=== PATIENT | female | born 1995 | race Caucasian/White ===

== ENCOUNTER 2016-11-06 17:53 | Emergency (ER) | payer BC ==
[2016-11-06 18:02] VITALS: BP 115/69
--- NOTE | 2016-11-06 19:11 | UC ---
Skin Complaint HPI - HPI Summary HPI Summary: Feeling badly, rash that is tender and painful in occipital region of head--- - History of Current Complaint Chief Complaint: UCUpperExtremity Time Seen by Provider: 11/06/16 18:17 Stated Complaint: NECKAND HEAD SWELLING Hx Obtained From: Patient Hx Last Menstrual Period: 10/20/16 ?: No Onset/Duration: Sudden Onset, Lasting Days, Worse Since - today Timing: Constant Onset Severity: Mild Current Severity: Moderate Location: Discrete Character: Redness, Painful Aggravating: Touch Alleviating: Nothing Associated Signs & Symptoms: Positive: Negative - Allergy/Home Medications Allergies/Adverse Reactions: Allergies Allergy/AdvReac Type Severity Reaction Status Date / Time Ketorolac Tromethamine Allergy Mild Hives Verified 04/18/14 15:01 [From Toradol] Review of Systems Constitutional: Chills, Fatigue Skin: Rash Eyes: Negative ENT: Negative Respiratory: Negative Cardiovascular: Negative Gastrointestinal: Negative Genitourinary: Negative Motor: Negative Neurovascular: Negative Musculoskeletal: Negative Neurological: Negative Psychological: Negative All Other Systems Reviewed And Are Negative: Yes PMH/Surg Hx/FS Hx/Imm Hx Previously Healthy: Yes - Surgical History Surgical History: Yes - Family History Known Family History: Positive: None - Social History Occupation: Employed Full-time Alcohol Use: Rare Substance Use Type: None Smoking Status (MU): Never Smoked Tobacco Have You Smoked in the Last Year: No Physical Exam Triage Information Reviewed: Yes Appearance: Well-Nourished, Ill-Appearing - mild, Pain Distress Vital Signs: Initial Vital Signs Temp 99.0 F 11/06/16 17:58 Pulse 83 11/06/16 17:58 Resp 18 11/06/16 17:58 BP 115/69 11/06/16 17:58 Pulse Ox 100 11/06/16 17:58 Vital Signs Reviewed: Yes Eye Exam: Normal Eyes: Positive: Conjunctiva Clear ENT Exam: Normal ENT: Positive: Normal ENT inspection, Hearing grossly normal, Pharynx normal, TMs normal. Negative: Nasal congestion, Nasal drainage, Trismus, Muffled/ hoarse voice Dental Exam: Normal Neck exam: Normal Neck: Positive: Supple, Nontender, No Lymphadenopathy Respiratory Exam: Normal Respiratory: Positive: Chest non-tender, Lungs clear, Normal breath sounds, No respiratory distress, No accessory muscle use Cardiovascular Exam: Normal Cardiovascular: Positive: RRR, No Murmur, Pulses Normal, Brisk Capillary Refill Abdominal Exam: Normal Abdomen Description: Positive: Nontender, No Organomegaly, Soft Bowel Sounds: Positive: Present Musculoskeletal Exam: Normal Musculoskeletal: Positive: Strength Intact, ROM Intact, No Edema Neurological Exam: Normal Neurological: Positive: Alert, Muscle Tone Normal Psychological Exam: Normal Psychological: Positive: Normal Response To Family, Age Appropriate Behavior Skin: Positive: rashes Re-Evaluation - Re-Evaluation First Eval Change: Improved - reviewed case with , plan to submit strep swab. Swab postive for strep Course/Dx - Course Course Of Treatment: Amoxicillin, rest one day off or work, follow with pvp - Differential Diagnoses - Skin Complaint Differential Diagnoses: Cellulitis, Contact Dermatitis, Poison Melina, Urticaria - Diagnoses Provider Diagnoses: Strep syndrome Discharge - Discharge Plan Condition: Stable Disposition: HOME Prescriptions: Amoxicillin PO (*) [Amoxicillin 500 MG CAP*] 500 mg PO Q12H #20 cap Patient Education Materials: Amoxicillin (By mouth) Forms: *Work Release Referrals: [facility] [place] [facility]ERR[facility] [Outside] - If Needed No Primary Care Phys,NOPCP [Primary Care Provider] -
== END 2016-11-06 19:24 | disposition home or self-care (01) ==
LOC: UCEAST 17:53
DX: J02.0 Streptococcal pharyngitis (principal); R53.83 Other fatigue; Z88.5 Allergy status to narcotic agent; R68.83 Chills (without fever); R21 Rash and other nonspecific skin eruption
CPT/HCPCS: 87651; 99212; G0463

== ENCOUNTER 2018-06-14 18:19 | Emergency (ER) | payer BC ==
[2018-06-14 18:37] VITALS: BP 138/92
--- NOTE | 2018-06-14 18:48 | UC ---
Throat Pain/Nasal Yunior HPI - HPI Summary HPI Summary: 22-year-old woman comes in with a chief complaint of runny nose sinus pressure yellow rhinorrhea fever bodyaches and fatigue. Been going on for about 3 days. [id number] medicines to help with symptoms. Patient does not have a sore throat. No chest congestion or shortness of breath. - History of Current Complaint Chief Complaint: UCRespiratory Stated Complaint: SINUS CONGESTION Time Seen by Provider: 06/14/18 18:27 Hx Last Menstrual Period: 05/30/18 Pain Intensity: 7 - Allergies/Home Medications Allergies/Adverse Reactions: Allergies Allergy/AdvReac Type Severity Reaction Status Date / Time bee venom protein (honey bee) Allergy Unknown Verified 06/14/18 18:38 Reaction Details ketorolac [From Toradol] Allergy Hives Verified 06/14/18 18:38 Home Medications: Home Medications RX: Ibuprofen 800 mg PO ONCE PRN 06/14/18 [History Confirmed 06/14/18] PMH/Surg Hx/FS Hx/Imm Hx Previously Healthy: Yes - Surgical History Surgical History: None - Family History Known Family History: Positive: None - Social History Alcohol Use: Rare Substance Use Type: None Smoking Status (MU): Never Smoked Tobacco Have You Smoked in the Last Year: No Review of Systems All Other Systems Reviewed And Are Negative: Yes Constitutional: Positive: Fever, Chills Skin: Positive: Negative Eyes: Positive: Negative ENT: Positive: Nasal Discharge, Sinus Congestion, Sinus Pain/Tenderness Respiratory: Positive: Negative Cardiovascular: Positive: Negative Gastrointestinal: Positive: Negative Motor: Positive: Negative Neurovascular: Positive: Negative Musculoskeletal: Positive: Myalgia Neurological: Positive: Negative Psychological: Positive: Negative Is Patient Immunocompromised?: No Physical Exam Triage Information Reviewed: Yes Appearance: No Pain Distress, Well-Nourished, Ill-Appearing - MILD Vital Signs: Initial Vital Signs Temp 100 F 06/14/18 18:34 Pulse 107 06/14/18 18:34 Resp 18 06/14/18 18:34 BP 138/92 06/14/18 18:34 Pulse Ox 99 06/14/18 18:34 Vital Signs Reviewed: Yes Eye Exam: Normal Eyes: Positive: Conjunctiva Clear ENT: Positive: Pharyngeal erythema, Nasal congestion, Nasal drainage, TMs normal Neck exam: Normal Neck: Positive: Supple Respiratory: Positive: Lungs clear, Normal breath sounds, No respiratory distress Cardiovascular: Positive: Tachycardia Musculoskeletal Exam: Normal Musculoskeletal: Positive: Strength Intact, ROM Intact Neurological Exam: Normal Neurological: Positive: Alert, Muscle Tone Normal Psychological Exam: Normal Psychological: Positive: Age Appropriate Behavior Skin Exam: Normal Throat Pain/Nasal Course/Dx - Course Course Of Treatment: DISCUSSED VIRAL VERSES BACTERIAL INFECTION AND THE ROLE OF ANTIBIOTICS. THE PATIENT WISHES TO BE ON ANTIBIOTICS AT THIS TIME. - Differential Dx/Diagnosis Provider Diagnosis: Sinusitis Discharge - Sign-Out/Discharge Documenting (check all that apply): Patient Departure All imaging exams completed and their final reports reviewed: No Studies - Discharge Plan Condition: Stable Disposition: HOME Prescriptions: Amoxicillin PO (*) [Amoxicillin 875 MG (*)] 875 mg PO BID #20 tab Patient Education Materials: Sinusitis (ED) Forms: *Work Release Referrals: Martinez LOPEZ,Jorge Haynes [Primary Care Provider] - Additional Instructions: FOLLOW UP WITH YOUR DOCTOR IF NOT COMPLETELY IMPROVED. GET RECHECKED FOR ANY WORSENING OF YOUR CONDITION OR QUESTIONS OR CONCERNS. - Billing Disposition and Condition Condition: STABLE Disposition: Home
== END 2018-06-14 18:55 | disposition home or self-care (01) ==
LOC: UCEAST 18:19
DX: J32.9 Chronic sinusitis, unspecified (principal); Z91.030 Bee allergy status; Z88.8 Allergy status to other drugs, medicaments and biological substances
CPT/HCPCS: 99212; G0463

== ENCOUNTER 2018-06-25 17:44 | Emergency (ER) | payer BC ==
[2018-06-25 18:07] VITALS: BP 127/81
--- NOTE | 2018-06-25 18:25 | UC ---
Skin Complaint HPI - HPI Summary HPI Summary: 22-year-old woman comes in with a chief complaint of an injury to the sole of her left foot. Yesterday in her kitchen at home she was barefoot and she felt her left foot. Is a puncture wound there and it continues to hurt and she wonders if there is a foreign body in there. She tried to get it out but she has not been able to. Hurts when she walks on it's better when she's not walking on. - History of Current Complaint Chief Complaint: UCLowerExtremity Time Seen by Provider: 06/25/18 18:14 Stated Complaint: GLASS IN FOOT Hx Last Menstrual Period: 06/04/2018 Pain Intensity: 7 - Allergy/Home Medications Allergies/Adverse Reactions: Allergies Allergy/AdvReac Type Severity Reaction Status Date / Time bee venom protein (honey bee) Allergy Unknown Verified 06/14/18 18:38 Reaction Details ketorolac [From Toradol] Allergy Hives Verified 06/14/18 18:38 PMH/Surg Hx/FS Hx/Imm Hx Previously Healthy: Yes - Surgical History Surgical History: None - Family History Known Family History: Positive: None - Social History Alcohol Use: Rare Substance Use Type: None Smoking Status (MU): Never Smoked Tobacco Have You Smoked in the Last Year: No Review of Systems All Other Systems Reviewed And Are Negative: Yes Constitutional: Positive: Negative Skin: Positive: Other - SEE HPI Eyes: Positive: Negative ENT: Positive: Negative Respiratory: Positive: Negative Cardiovascular: Positive: Negative Gastrointestinal: Positive: Negative Motor: Positive: Negative Neurovascular: Positive: Negative Musculoskeletal: Positive: Negative Neurological: Positive: Negative Psychological: Positive: Negative Is Patient Immunocompromised?: No Physical Exam Triage Information Reviewed: Yes Appearance: Well-Appearing, No Pain Distress, Well-Nourished Vital Signs: Initial Vital Signs Temp 98.5 F 06/25/18 18:00 Pulse 80 06/25/18 18:00 Resp 16 06/25/18 18:00 BP 127/81 06/25/18 18:00 Pulse Ox 100 06/25/18 18:00 Vital Signs Reviewed: Yes Eye Exam: Normal Eyes: Positive: Conjunctiva Clear Neck: Positive: Supple Musculoskeletal Exam: Normal Musculoskeletal: Positive: Strength Intact, ROM Intact Neurological Exam: Normal Neurological: Positive: Alert, Muscle Tone Normal Psychological Exam: Normal Psychological: Positive: Age Appropriate Behavior Skin: Positive: Other - DORSUM DISTAL LEFT FOOT; PUNCTURE WOUND, NO ERYTHEMA, NO FB PALPATED, NO DISCHARGE. Course/Dx - Course Course Of Treatment: I reviewed the x-rays with the patient. I see a foreign body in the foot. Radiologist reading is pending. On external examination I cannot locate the foreign body. I discussed the bring the area to attempt to find the foreign body versus leaving it in place. At this time the plan is to leave in place as the foreign body small and the chance of finding it is also small. Plan will be to follow-up with podiatry reevaluate sooner if worse. - Diagnoses Provider Diagnosis: Puncture wound of left foot, Soft tissues foreign body Discharge - Sign-Out/Discharge Documenting (check all that apply): Patient Departure All imaging exams completed and their final reports reviewed: No Studies - Discharge Plan Condition: Stable Disposition: HOME Prescriptions: Cephalexin CAP* [Keflex CAP*] 500 mg PO TID #21 cap Patient Education Materials: Puncture Wound (ED), Soft Tissue Foreign Body (ED) Referrals: Martinez LOPEZ,Jorge Haynes [Primary Care Provider] - Demarco Merino DPM [Doctor of Podiatric Medicine] - Vidhya Espino DPM [Doctor of Podiatric Medicine] - Additional Instructions: FOLLOW UP WITH PODIATRY. GET REEVALUATED SOONER FOR ANY WORSENING OF YOUR CONDITION OR ANY QUESTIONS OR CONCERNS. - Billing Disposition and Condition Condition: STABLE Disposition: Home
== END 2018-06-25 19:00 | disposition home or self-care (01) ==
LOC: UCEAST 17:44
DX: S91.332A Puncture wound without foreign body, left foot, initial encounter (principal); Z91.030 Bee allergy status; M79.5 Residual foreign body in soft tissue; Z88.8 Allergy status to other drugs, medicaments and biological substances; X58.XXXA Exposure to other specified factors, initial encounter; Y92.000 Kitchen of unspecified non-institutional (private) residence as the place of occurrence of the external cause
CPT/HCPCS: 99212; G0463